=== PATIENT | male | born 1990 | race Caucasian/White ===

== ENCOUNTER 2020-04-04 12:03 | Emergency (ER) | payer OTHER ==
[2020-04-05] MEDS ORDERED: TOPAMAX50 MG PO (16:42)
== END 2020-04-04 15:27 | disposition home or self-care (01) ==
LOC: FER 12:03
DX: R51.9 Headache, unspecified (principal); I10 Essential (primary) hypertension; Z79.899 Other long term (current) drug therapy; Z88.0 Allergy status to penicillin
CPT/HCPCS: 70450

== ENCOUNTER 2020-04-05 11:46 | Emergency (ER) | payer OTHER ==
[2020-04-05 13:10] LABS: BASOPHIL 0.5 % (0-2); EOSINOPHIL 2.2 % (0-5); HCT 48.1 % (42.0-52.0); HGB 16.2 g/dl (13.2-18.0); LYMPHOCYTE 16.5 % (15-48); MCHC 33.7 g/dL (32.0-36.0); MCV 94.9 fL (78.0-100.0); MONOCYTE 7.5 % (0-12); MPV 9.9 fL (6.0-9.5); NEUTROPHIL 73.1 % (41-80); NRBC 0; PLT 218 K/uL (150-400); RBC 5.07 M/uL (4.70-6.00); RDW 12.8 % (11.5-14.0); WBC 9.4 K/uL (4.0-10.5)
[2020-04-05 13:26] LABS: C-REACTIVE PROTEIN 0.8 mg/dL (<=0.90); CREATININE 0.85 mg/dL (0.67-1.17); POTASSIUM 4.3 mmol/L (3.5-5.1)
[2020-04-05] MEDS ORDERED: TOPAMAX50 MG PO (16:42)
== END 2020-04-05 17:17 | disposition home or self-care (01) ==
LOC: FER 11:46
PROVIDERS: Emergency Medicine
DX: G43.909 Migraine, unspecified, not intractable, without status migrainosus (principal); I10 Essential (primary) hypertension; E66.9 Obesity, unspecified; F17.200 Nicotine dependence, unspecified, uncomplicated; Z88.0 Allergy status to penicillin; Z88.1 Allergy status to other antibiotic agents
CPT/HCPCS: 36415; 80048; 85025; 86140; J0780; J1200; J1885; J2405; Q9967